=== PATIENT | female | born 1990 | race Caucasian/White ===

== ENCOUNTER 2018-04-20 07:36 | Emergency (ER) | payer OTHER ==
[2018-04-20 08:27] LABS: ABSOLUTE LYMPHOCYTES (AUTO) 1.7 10^3/uL (0.5-4.7); ABSOLUTE MONOCYTES (AUTO) 0.4 10^3/uL (0.1-1.4); ABSOLUTE NEUT (AUTO) 4.1 10^3/uL (1.7-8.2); BASOPHILS % (AUTO) 0.7 % (0-2); EOSINOPHILS % (AUTO) 0.1 % (0-6); HEMATOCRIT 42.7 % (36.0-47.0); HEMOGLOBIN 15.2 g/dL (12.0-15.5); LYMPHOCYTES % (AUTO) 26.4 % (13-45); MEAN CORPUSCULAR HEMOGLOBIN 30.6 pg (27.0-33.4); MEAN CORPUSCULAR HGB CONC 35.6 g/dL (32.0-36.0); MEAN CORPUSCULAR VOLUME 86 fl (80-97); MONOCYTES % (AUTO) 6.4 % (3-13); PLATELET COUNT 238 10^3/uL (150-450); RED BLOOD COUNT 4.97 10^6/uL (3.72-5.28); RED CELL DISTRIBUTION WIDTH 12.7 % (11.5-14.0); SEGMENTED NEUTROPHILS % (AUTO) 66.4 % (42-78); TOTAL CELLS COUNTED % (AUTO) 100 %; WHITE BLOOD COUNT 6.3 10^3/uL (4.0-10.5)
[2018-04-20 08:48] LABS: ANION GAP 14 (5-19); BLOOD UREA NITROGEN 11 mg/dL (7-20); CALCIUM 9.7 mg/dL (8.4-10.2); CARBON DIOXIDE 26 mmol/L (22-30); CHLORIDE 102 mmol/L (98-107); GLUCOSE 109 mg/dL (75-110); POTASSIUM 3.7 mmol/L (3.6-5.0)
--- NOTE | 2018-04-20 08:49 | RADIOLOGY REPORT (SQ) ---
EXAM DESCRIPTION: CHEST SINGLE VIEW COMPLETED DATE/TIME: 04/20/2018 8:27 am REASON FOR STUDY: palpitations COMPARISON: None. EXAM PARAMETERS: NUMBER OF VIEWS: One view. TECHNIQUE: Single frontal radiographic view of the chest acquired. RADIATION DOSE: NA LIMITATIONS: None. FINDINGS: LUNGS AND PLEURA: No opacities, masses or pneumothorax. There are probable tiny calcified benign pulmonary nodules present bilaterally. No pleural effusion. MEDIASTINUM AND HILAR STRUCTURES: No masses. Contour normal. HEART AND VASCULAR STRUCTURES: Heart normal in size. Normal vasculature. BONES: No acute findings. HARDWARE: None in the chest. OTHER: No other significant finding. IMPRESSION: No acute abnormality of the lungs in AP projection. TECHNICAL DOCUMENTATION: JOB ID: [id number] [employer]- All Rights Reserved Reading location - IP/workstation name: [email or web address]
[2018-04-20 09:04] LABS: FREE T4 (FREE THYROXINE) 1.06 ng/dL (0.78-2.19)
[2018-04-20 09:18] LABS: THYROID STIMULATING HORMONE 2.36 uIU/mL (0.47-4.68)
--- NOTE | 2018-04-20 09:49 | ER Document Report ---
ED Cardiac - General Chief Complaint: Chest Pain Stated Complaint: CHEST PAIN Time Seen by Provider: 04/20/18 08:03 Mode of Arrival: Ambulatory Information source: Patient TRAVEL OUTSIDE OF THE [place] IN LAST 30 DAYS: No - HPI Patient complains to provider of: Palpitations - 27-year-old healthy female that presents for palpitations over the last couple of days she notes that she has had slightly increased stress of late and that her palpitations are is making it somewhat difficult for her to sleep regularly. Denies any symptoms like this in the past, has never had any problems with her heart that she knows of, has no significant family history of heart problems. Is never been seen for this in the past. Denies any chest pain shortness of breath or symptoms just notes intermittent palpitations which are most prominent when she is up and moving. - Related Data Allergies/Adverse Reactions: metronidazole [From Flagyl] Allergy (Verified 04/20/18 07:37) Penicillins Allergy (Verified 04/20/18 07:37) Past Medical History - General Information source: Patient - Social History Smoking Status: Never Smoker Chew tobacco use (# tins/day): No Frequency of alcohol use: Occasional Drug Abuse: None Family History: None Patient has suicidal ideation: No Patient has homicidal ideation: No Renal/ Medical History: Denies: Hx Peritoneal Dialysis Review of Systems - Review of Systems -: Yes All other systems reviewed and negative Physical Exam - Vital signs Vitals: Temp Pulse Resp BP Pulse Ox 97.8 F 93 20 131/81 H 98 04/20/18 07:48 04/20/18 07:48 04/20/18 07:48 04/20/18 07:48 04/20/18 07:48 - General General appearance: Appears well, Alert - HEENT Head: Normocephalic, Atraumatic Eyes: Normal Pupils: PERRL - Respiratory Respiratory status: No respiratory distress Chest status: Nontender Breath sounds: Normal Chest palpation: Normal - Cardiovascular Rhythm: Tachycardia Heart sounds: Normal auscultation Murmur: No - Abdominal Inspection: Normal Distension: No distension Bowel sounds: Normal Tenderness: Nontender Organomegaly: No organomegaly - Back Back: Normal, Nontender - Extremities General upper extremity: Normal inspection, Nontender, Normal color, Normal ROM , Normal temperature General lower extremity: Normal inspection, Nontender, Normal color, Normal ROM , Normal temperature, Normal weight bearing. No: Danette's sign - Neurological Neuro grossly intact: Yes Cognition: Normal Orientation: AAOx4 Kristie Coma Scale Eye Opening: Spontaneous [place] Coma Scale Verbal: Oriented Kristie Coma Scale Motor: Obeys Commands Kristie Coma Scale Total: 15 Speech: Normal Motor strength normal: LUE, RUE, LLE, RLE Sensory: Normal - Psychological Associated symptoms: Normal affect, Normal mood Course - Re-evaluation Re-evalutation: 04/20/18 17:56 27-year-old otherwise healthy female that presents for evaluation of palpitations. Is persistently intermittently tachycardic to the 110 range while in the emergency department without any chest pain symptoms. We will obtain broad workup including TSH free T4 CBC CMP and d-dimer. Patient's workup is relatively unremarkable, there is no obvious cause for persistent tachycardia and palpitations though well on monitor she does not demonstrate any arrhythmias outside of tachycardia and a sinus tachycardia pattern. Counseled the patient about treatment options including deferment of any treatment and follow-up or a brief trial of metoprolol, she preferred a trial of metoprolol, gave her first dose in the emergency department should she is able to tolerate appropriately. Given that she is able to tolerate the metoprolol and said that it did seem to help with her symptoms we will give her a brief course of this to use in the outpatient setting with follow-up at her primary physician for ongoing management of her palpitations. She did agree with this course of action at this time will plan for discharge with return precautions and asked with the management. - Vital Signs Vital signs: Temp Pulse Resp BP Pulse Ox 97.7 F 93 19 106/84 97 04/20/18 12:13 04/20/18 07:48 04/20/18 12:01 04/20/18 12:00 04/20/18 12:01 - Laboratory Result Diagrams: 04/20/18 08:03 04/20/18 08:03 Discharge - Discharge Clinical Impression: Palpitations, Tachycardia Condition: Good Disposition: HOME, SELF-CARE Instructions: Beta Blockers ([facility]), Palpitations (Irregular or Rapid Heartrate) ([facility]) Additional Instructions: You were seen today in the emergency department for your palpitations. You had an evaluation including a physical exam and blood tests. Your palpitations do not have obvious cause and your blood tests. You have been given a brief prescription for a medication to help. You should follow-up with a doctor in the coming week for reevaluation. Return in case of any worsening pain, lightheadedness shortness of breath or other symptoms. Prescriptions: Metoprolol Tartrate [Lopressor 25 mg Tablet] 12.5 mg PO Q12 #30 tab Referrals: [facility] [ACTIVE STAFF] - Follow up as needed
[2018-04-20] MEDS ORDERED: METOPROLOL TARTRATE 25 MG TABLET PO ONE (10:18)
--- NOTE | 2018-04-20 11:27 | EKG REPORT ---
SEVERITY:- BORDERLINE ECG - SINUS RHYTHM BORDERLINE T ABNORMALITIES, INFERIOR LEADS : Confirmed by: Demarco Haddad 20-Apr-2018 11:26:38
[2018-04-20 12:06] VITALS: BP 106/84
== END 2018-04-20 12:14 | disposition home or self-care (01) ==
LOC: ER 07:36
DX: R00.0 Tachycardia, unspecified (principal); R00.2 Palpitations; Z88.1 Allergy status to other antibiotic agents; Z88.0 Allergy status to penicillin
CPT/HCPCS: 36415; 71045; 80048; 84439; 84443; 85025; 85379; 93005; 93010; 99285

== ENCOUNTER → 2018-06-20 | Outpatient (CLI) | payer OTHER ==
[2018-06-20 07:27] LABS: ANION GAP 10 (5-19); BLOOD UREA NITROGEN 8 mg/dL (7-20); CALCIUM 9.8 mg/dL (8.4-10.2); CARBON DIOXIDE 30 mmol/L (22-30); CHLORIDE 102 mmol/L (98-107); GLUCOSE 71 mg/dL (75-110); POTASSIUM 4.3 mmol/L (3.6-5.0)
[2018-06-22 15:04] LABS: LYME DISEASE IGM AB <0.80 index (0.00-0.79)
== END ==
LOC: LAB 04:54
PROVIDERS: ATTEND Physician Assistant
DX: R00.2 Palpitations (principal)
CPT/HCPCS: 36415; 80048; 86617; 86618

== ENCOUNTER → 2019-11-12 | Outpatient (CLI) | payer OTHER | LOC: RDC 14:04 | PROVIDERS: ATTEND Nurse Practitioner Family | DX: Z53.9 Procedure and treatment not carried out, unspecified reason (principal) | CPT/HCPCS: 87635; C9803 ==